=== PATIENT | male | born 1990 | race Two or more races ===

== ENCOUNTER 2023-06-21 07:38 | Day surgery (SDC) | payer OTHER ==
[~2023-06-21] VITALS: Ht 175.3 cm; Wt 162.6 kg
[~2023-06-21 07:38] MED LIST: TRUVADA 200 MG1 EACH PO
[2023-06-21 08:01] VITALS: BP 142/74
--- NOTE | 2023-06-21 09:08 | NUR ---
06/21/23 0908 Alee De La Vega 0905-PT TO PACU IN LL POSITION. EYES CLOSED. DOES NOT RESPODN TO VERBAL TO TACTILE STIMULI. MOVES EXTREMITIES BUT DOES NOT FOLLOW COMMANDS. BREATHING EASY AND UNLABORED. SPO2 >95% ON 3 L O2 VIA NC.
--- NOTE | 2023-06-21 09:41 | OR ---
[facility] [address] [place], [place] [address] Signed DATE OF OPERATION: 06/21/2023 SURGEON: Guy Shaffer MD PREOPERATIVE DIAGNOSES: 1. Internal and external hemorrhoid at the 5 o'clock position. 2. Rectal bleeding with mucousy discharge. 3. Change in bowel habits with hard stool, now oily and mucousy. POSTOPERATIVE DIAGNOSIS: Pedunculated moderate-sized internal hemorrhoid. PROCEDURE: Colonoscopy with cold biopsies of the left colon and distal rectum. ESTIMATED BLOOD LOSS: None. INDICATIONS: Edwin is a 33-year-old obese gentleman, asked to see me for his hemorrhoids. I first met Edwin in May 2020 at the age of 30. We know he has an internal and external hemorrhoid at the 5 o'clock position. He wanted to proceed with conservative treatment at that time. He said the hemorrhoids have gotten larger and they have been bleeding every day. He said there is lots of mucus. 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 He also has homosexual behavior but said he has had no relationships in over a year. He said there have been no foreign bodies in the anal canal in over a year. He describes a change in bowel habits with normally hard stool but now oily and mucousy. He had been to his primary care provider. He was asked to see me with respect to the above. He has no family history of colon cancer, colon polyps or inflammatory bowel disease. In the office, I explained to Edwin and his that we perform a colonoscopy before we would proceed with any hemorrhoid surgery. I gave him a pamphlet on colonoscopy. We had reviewed the nature of the test. He understands there is risk including, but not limited to gas bloating, crampy abdominal pain, bleeding, perforation requiring surgery, and missed diagnosis. We also reviewed the written instructions for bowel prep line by line. He had expressed understanding and wished to proceed. He understands an adult person has to take him home afterwards. PROCEDURE NOTE: Edwin was taken into our endoscopy suite and placed in the left lateral decubitus position. He was given 8 mg of Versed and 150 mcg of fentanyl to cover the case. A Electronically Signed By: GUY SHAFFER MD 06/21/23 0941 PATIENT NAME: KATHI SYED OPERATIVE REPORT DATE OF : [birth year] REPORT #: [id number] PHYSICIAN: GUY SHAFFER MD PCP: NO PRIMARY CARE PHYSICIAN REPORT IS CONFIDENTIAL AND NOT TO BE RELEASED WITHOUT AUTHORIZATION [facility] [address], [place] [address] Signed digital rectal exam was performed and this was unremarkable. He has no obvious external hemorrhoids. He had good sphincter tone. He is a very large man and I could not reach the prostate. I could just barely get my finger up over the levator muscles. After this, the adult colonoscope was introduced and advanced under direct visualization of the camera up into the cecum itself. His prep was quite good. We could easily see the appendiceal orifice and the ileocecal valve. The scope was then slowly withdrawn. We took pictures throughout for photodocumentation. There were no inflammatory changes throughout the entire colon. We took a couple of biopsies out of his left colon because of the change in bowel habits. The rectum was unremarkable except near the distal half it was a bit speckled in the mucosa. We took a couple of biopsies for pathologic review. We finally found his pedunculated and hemorrhagic internal hemorrhoid. It is just above the dentate line. It is a little too large to capture it with a wire here in the endoscopy suite. We will have to do this in the operating room. After this, the gas was suctioned out and the colonoscope removed. Edwin tolerated the procedure quite well. RECOMMENDATIONS: I will see Edwin back in my office in 7 to 14 days to review his results. Guy Shaffer MD ALB/MODL /[id number] cc: MD Delmis Garcia FNP Copies: GUY SHAFFER MD, SHARA FNP ~ Electronically Signed By: GUY SHAFFER MD 06/21/23 0941 PATIENT NAME: KATHI SYED OPERATIVE REPORT DATE OF : [birth year] REPORT #: [id number] PHYSICIAN: GUY SHAFFER MD PCP: NO PRIMARY CARE PHYSICIAN REPORT IS CONFIDENTIAL AND NOT TO BE RELEASED WITHOUT AUTHORIZATION
[2023-06-21 09:47] VITALS: BP 154/99
--- NOTE | 2023-06-25 12:13 | PATH ---
[facility] [address] [facility] [place], [place] [address] Signed SPECIMEN(S): A COLON BIOPSY SPECIMEN(S): B RECTUM SPECIMEN SOURCE: A. COLON BIOPSY B. RECTUM CLINICAL HISTORY: Pre: History of bowel changes. Post: Internal hemorrhoids. FINAL PATHOLOGIC DIAGNOSIS: A. Colon biopsy: - Benign colonic mucosa with slight hyperplastic features (three fragments). - Negative for dysplasia or pathologic inflammation. B. Rectum, biopsy: - Benign colonic mucosa with slight hyperplastic features (three fragments). - Negative for dysplasia or pathologic inflammation. VR:[facility] [place] MICROSCOPIC EXAMINATION: Histologic sections of all submitted blocks are examined by light microscopy. These findings, together with the gross examination, support the pathologic diagnosis. GROSS DESCRIPTION: A. The specimen, labeled and designated "Syed, F, colon (NOS) biopsy," is received in formalin and consists of 2 pike soft tissue fragments measuring 0.3 x 0.5 cm in greatest dimension, specimens are submitted entirely in (A1). B. The specimen, labeled and designated "Syed, F, colon, rectum biopsy," is received in formalin and consists of 2 pike soft tissue fragments measuring 0.3 x 0.5 cm in greatest dimension, specimens are submitted entirely in (B1). [facility] (under the direct supervision of a pathologist) The Gross Description was prepared using a voice recognition system. The report was reviewed for accuracy; however, sound-alike word errors, addition and/or deletions may occur. If there is any question about this report, please contact Client Services. PERFORMING LABORATORY: Technical component was performed by [employer] Justina Carter, PATIENT NAME: KATHI SYED PATHOLOGY DATE OF : [birth year] REPORT #: [id number] PHYSICIAN: AYESHA PATHOLOGY PCP: NO PRIMARY CARE PHYSICIAN REPORT IS CONFIDENTIAL AND NOT TO BE RELEASED WITHOUT AUTHORIZATION [facility] [address] [facility] [place] [address] [place] [address] (CLIA# [id number]). Professional interpretation was performed by [facility] [address] [address] (CLIA#: [id number]). Diagnostician: Scott Meyer MD Pathologist Electronically Signed 06/25/2023 Copies: ~ PATIENT NAME: KATHI SYED PATHOLOGY DATE OF : [birth year] REPORT #: [id number] PHYSICIAN: AYESHA QUINN PCP: NO PRIMARY CARE PHYSICIAN REPORT IS CONFIDENTIAL AND NOT TO BE RELEASED WITHOUT AUTHORIZATION
== END 2023-06-21 09:50 | disposition home or self-care (01) ==
LOC: DS 07:38 → OPS 07:38 → DS 10:15 → OPS 10:15
PROVIDERS: ATTEND Colon & Rectal Surgery
PROC: 0DBP8ZX Excision of Rectum, Via Natural or Artificial Opening Endoscopic, Diagnostic (ICD-10-PCS; 2023-06-21)
PROC: 0DBM8ZX Excision of Descending Colon, Via Natural or Artificial Opening Endoscopic, Diagnostic (ICD-10-PCS; principal; 2023-06-21 08:30)
DX: K64.8 Other hemorrhoids (principal); K64.4 Residual hemorrhoidal skin tags; E66.9 Obesity, unspecified; F41.9 Anxiety disorder, unspecified; Z68.43 Body mass index [BMI] 50.0-59.9, adult
CPT/HCPCS: 99153; G0500; J2250; J3010; J7121

== ENCOUNTER 2023-08-29 09:58 | Day surgery (SDC) | payer OTHER ==
[~2023-08-29] VITALS: Ht 175.3 cm; Wt 163.2 kg
[2023-08-29 10:17] VITALS: BP 151/83
--- NOTE | 2023-08-29 14:09 | NUR ---
08/29/23 1409 [place] 1342 PT TO PACU ON STRETCHER. NON AROUSABLE. LE 1407 PT AWAKE AND TAKING SIPS OF WATER. DENIES PAIN.
[2023-08-29 14:30] VITALS: BP 136/81
--- NOTE | 2023-08-29 14:40 | NUR ---
1435: PATIENT BACK IN DAY SURGERY ROOM FROM PACU. DENIES PAIN. PERIPAD IN PLACE IS CLEAN, DRY AND INTACT. TOLERATING WATER. IV SALINE LOCKED AFTER ARRIVING IN DAY SURGERY. VS CHECKED. PATIENT GIVEN CHOCOLATE PUDDING TO EAT. SCDs ON. MOTHER AT BEDSIDE. CALL LIGHT WITHIN REACH.
[2023-08-29] MEDS ORDERED: HYDROCODON-ACE1 EAC8 PO (14:51)
[2023-08-29 15:20] VITALS: BP 142/78
--- NOTE | 2023-08-29 16:38 | NUR ---
1520: PATIENT TOLERATED PUDDING. DENIES PAIN AT SURGICAL SITE. VS CHECKED. IV DC'D WNL. TIP INTACT. DRESSING APPLIED. DISCHARGE INSTRUCTIONS GIVEN TO PATIENT AND MOTHER. 1530: PATIENT ASSISTED OOB AND TO WALK AROUND ROOM. PATIENT GETTING DRESSED. 1538: STAND BY ASSIST WHILE WALKING TO BATHROOM. VOID WITHOUT DIFFICULTY. GAIT STEADY. PATIENT DISCHARGED TO HOME VIA WHEELCHAIR WITH MOTHER.
--- NOTE | 2023-08-30 07:21 | OR ---
[facility] [address] [place], [place] [address] Signed DATE OF OPERATION: 08/29/2023 SURGEON: Guy Bacon MD PREOPERATIVE DIAGNOSIS: Bleeding internal and external hemorrhoid at the 5 o'clock position. POSTOPERATIVE DIAGNOSIS: Bleeding internal and external hemorrhoid at the 5 o'clock position. PROCEDURE: External hemorrhoidectomy. ESTIMATED BLOOD LOSS: Minimal. INDICATIONS: Kathi is a 33-year-old obese gentleman, who has been struggling with an internal and external hemorrhoid at the 5 o'clock position. It has been bleeding for several years. It has become progressively worse. We had him for a colonoscopy previously. That went well. We could see this hemorrhoid at the 5 o'clock position. Kathi came back to the office and said he would like to have it removed. I had given him a brochure on hemorrhoids. We went through ir page by page. I circled the sections relevant to him. He understands that traditional hemorrhoid surgery can be very painful. Of course there is risk including, but not limited to bleeding, infection, scarring, change in contour of the skin as well as other unforeseen comorbidities including ongoing hemorrhoid issues. He understands this will be a day surgery. He had expressed understanding wished to proceed. DESCRIPTION OF PROCEDURE: Kathi went through our standard bowel prep. He did well in that regard. He came today with his mom. Two of our anesthesia providers attempted to place a saddle block. Unfortunately, with a body mass index of 53, that was not successful. Consequently, we took Kathi in the room and we placed him under general endotracheal tube anesthesia. With the help of multiple nurses, we rotated him into the supine straight we rotated him into the prone charlene-knife position with appropriate padding and monitoring. He was given preoperative antibiotics along with subcutaneous heparin. SCDs were utilized. He was prepped and draped in the usual sterile fashion. After this, a digital rectal exam was performed and I can feel this pedunculated hemorrhoid tissue. We then used a half-simon protractor and we could easily see this pedunculated hemorrhoid at the 5 Electronically Signed By: GUY BACON MD 08/30/23 0721 PATIENT NAME: KATHI SYED OPERATIVE REPORT DATE OF : [birth year] REPORT #: [id number] PHYSICIAN: GUY BACON MD PCP: EVERT LAM REPORT IS CONFIDENTIAL AND NOT TO BE RELEASED WITHOUT AUTHORIZATION [facility] [address] [place], [place] [address] Signed o'clock position. A very interesting in that regard. We used a standard 2-0 chromic suture just above this area and placed our 1st stitch. We then used cautery to excise this pedunculated very hemorrhagic almost granulomatous looking tissue. We did not see any obvious areas that would suggest HPV infection. We then oversewed that hemorrhoidectomy site with running locked 2-0 chromic suture. Local anesthetic was then injected underneath the area. Kathi was then rotated into the supine position onto his hospital bed. He was weaned from his anesthesia, extubated in the OR, and taken to recovery room in stable condition. Guy Bacon MD ALB/MODL /[id number] cc: DEMI Mays MD Copies: EVERT LAM ANDREW L MD ~ Electronically Signed By: GUY BACON MD 08/30/23 0721 PATIENT NAME: KATHI SYED OPERATIVE REPORT DATE OF : [birth year] REPORT #: [id number] PHYSICIAN: GUY BACON MD PCP: EVERT LAM REPORT IS CONFIDENTIAL AND NOT TO BE RELEASED WITHOUT AUTHORIZATION
== END 2023-08-29 15:30 | disposition home or self-care (01) ==
LOC: DS 09:58
PROVIDERS: ATTEND Colon & Rectal Surgery
PROC: 065Y0ZC Destruction of Hemorrhoidal Plexus, Open Approach (ICD-10-PCS; principal; 2023-08-29 11:50)
DX: K64.8 Other hemorrhoids (principal); K64.4 Residual hemorrhoidal skin tags; E66.9 Obesity, unspecified; Z68.43 Body mass index [BMI] 50.0-59.9, adult
CPT/HCPCS: 00902; J0131; J0330; J0690; J1100; J1644; J2001; J2250; J2405; J2704; J3010; J3475; J3490; J7121

== ENCOUNTER 2024-07-24 08:30 | Day surgery (SDC) | payer OTHER ==
[2024-07-21 13:33] VITALS: BP 169/109
[~2024-07-24] VITALS: Ht 172.7 cm; Wt 145.4 kg
[~2024-07-24 08:30] MED LIST changes: +HYDROCODON-ACE1 EAC8 PO; +IBLOOD GLUCOSE TEST STRIP 1 EA TEST VI PRN; +LACTATED RINGER'S 1,000 ML IV SCH; +LIDOCAINE HCL 1% 5 ML SDV INJ ONE; +MIDAZOLAM HCL 5 MG/5 ML VIAL IV PRN; +fentaNYL citrate 100 MCG/2 ML VIAL IV PRN
[2024-07-24] MEDS ORDERED: LIDOCAINE HCL 2% 5 ML SDV ONE (09:19)
[2024-07-24] MEDS ORDERED: propofoL 200 MG/20 ML VIAL ONE ×2 (09:19→09:33)
--- NOTE | 2024-07-24 09:55 | NUR ---
07/24/24 0910 EDUARD XIAO 0953 PT ARRIVED TO PACU VIA STREACHER. PT AWAKE AND ON RA. BREATHING EQUAL AND UNLABORED. REPORT TAKEN FROM FABIAN IGLESIAS. PT REPORTING NO PAIN OR NAUSEA AT THIS. PT SITTING UPRIGHT IN BED. 0954 PT SITTING UPRIGHT IN BED SIPPING WATER AT THIS TIME. PT STATES HE IS COMFORTABLE.
[2024-07-24 10:08] VITALS: BP 124/85
--- NOTE | 2024-07-29 07:11 | OR ---
[facility] [address] [place], [place] [address] Signed DATE OF OPERATION: 07/24/2024 SURGEON: Guy Bacon MD PREOPERATIVE DIAGNOSES: 1. Epigastric and left upper quadrant abdominal pain. 2. Cholelithiasis. POSTOPERATIVE DIAGNOSES: 1. Mild distal esophagitis at GE junction. 2. GE junction at 35 cm. PROCEDURES: Esophagogastroduodenoscopy with CLOtest and biopsies of duodenum, pyloric bulb, antrum and GE junction. ESTIMATED BLOOD LOSS: None. INDICATIONS: Kathi is a 34-year-old gentleman with a body mass index of 58. He has been having trouble with intermittent epigastric and left upper quadrant abdominal pain. He is known to have cholelithiasis. He actually went down to [facility] and is working with hepatobiliary surgeon with respect to the above. They are considering a robotic assisted laparoscopic cholecystectomy. Hepatobiliary surgeon would like him to have an upper endoscopy. I was asked to help in that regard here as a local general surgeon. I had met with Kathi in the office. I gave him a pamphlet on upper endoscopy. We had reviewed the nature of the test. There is risk including, but not limited to gas bloating, crampy abdominal pain, bleeding, perforation requiring surgery, and missed diagnosis. We also reviewed the need for monitored anesthesia care given his body mass index and his very full face, heavy neck, chest and abdomen. He had expressed understanding and wished to proceed. DESCRIPTION OF PROCEDURE: Edwin was taken into our endoscopy suite and placed in the supine semi-recumbent position. He was placed under monitored anesthesia care propofol infusion per our nurse director of development and marketing. We reviewed his preop blood work and we can see that his total bilirubin 0.2, AST 33, ALT 89, which is slightly high and his alkaline phosphatase was 105. Albumin was good at 3.4. White count was normal. A bite block was utilized for the case. The posterior oropharynx was anesthetized with lidocaine spray. The adult Electronically Signed By: GUY BACON MD 07/29/24 0711 PATIENT NAME: KATHI SYED OPERATIVE REPORT DATE OF : [birth year] REPORT #: [id number] PHYSICIAN: GUY BACON MD PCP: EVERT LAM REPORT IS CONFIDENTIAL AND NOT TO BE RELEASED WITHOUT AUTHORIZATION [facility] [address] [place], [place] [address] Signed gastroscope was introduced and advanced under direct visualization of camera without difficulty. His duodenal and pyloric channel looked unremarkable. Because of his symptoms we went and took biopsies of the pyloric channel as well as the duodenum. We could just see a little bit of his ampulla of Vater and it seemed to be fine. We went ahead and took biopsies of the antrum for pathologic review as well as CLOtest. We saw no ulcers in the pyloric bulb or the stomach. Really no inflammation in the stomach. The incisura body and fundus of the stomach were unremarkable. Upon retroflexion of scope, just a little bit of stomach is getting pulled in on the lesser curve side. It is not really a hiatal hernia per se. The scope was withdrawn up through the area of the GE junction, which was compliant without stricture. There was no gastric or esophageal varices. He did have some irritation right around the Z-line at 35 cm. He had three small shallow ulcerations about 3 to 4 mm in length. There was no Burden's mucosa. The distal, middle and upper esophagus were unremarkable. We have taken a biopsy at the GE junction for pathologic review. After this, the gas was suctioned out and the gastroscope removed. Kathi tolerated the procedure quite well. RECOMMENDATIONS: I will see Kathi back in my office in 7 to 14 days to review his results. He might try proton pump inhibitors to see if this helps his symptoms. uGy Bacon MD ALB/MODL /[id number] cc: DEMI Mays MD [facility] Electron[facility] Signed By: GUY BACON MD 07/29/24 0711 PATIENT NAME: KATHI SYED OPERATIVE REPORT DATE OF : [birth year] REPORT #: [id number] PHYSICIAN: GUY BACON MD PCP: EVERT LAM REPORT IS CONFIDENTIAL AND NOT TO BE RELEASED WITHOUT AUTHORIZATION [facility] [address] [place] [address] Signed Copies: GUY BACON MD ~ Electronically Signed By: GUY BACON MD 07/29/24 0711 PATIENT NAME: KATHI SYED OPERATIVE REPORT DATE OF : [birth year] REPORT #: [id number] PHYSICIAN: GUY BACON MD PCP: EVERT LAM REPORT IS CONFIDENTIAL AND NOT TO BE RELEASED WITHOUT AUTHORIZATION
--- NOTE | 2024-07-29 10:44 | PATH ---
[facility] [address] [place], [place] [address] Signed SPECIMEN(S): A DUODENAL BIOPSY SPECIMEN(S): B ESOPHAGEAL BIOPSY SPECIMEN(S): C ANTRUM BIOPSY SPECIMEN(S): D GE JUNCTION BIOPSY SPECIMEN SOURCE: A. DUODENAL BIOPSY B. ESOPHAGEAL BIOPSY C. ANTRUM BIOPSY D. GE JUNCTION BIOPSY CLINICAL HISTORY: Evaluation for gastritis, distal esophagitis. FINAL PATHOLOGIC DIAGNOSIS: A. Duodenal biopsy: - Benign duodenal mucosa, negative for specific diagnostic abnormality. B. Esophageal biopsy: - Intestinal (duodenal) mucosa, negative for dysplasia. C. Antrum biopsy: - Benign gastric mucosa with focal slight chronic inflammation. - Negative for evidence of Helicobacter organisms on routine HE stained sections. D. GE junction biopsy: - Esophageal and gastric mucosa with specialized intestinal (goblet cell) metaplasia, indefinite for mild dysplasia. COMMENT: As part of [facility] Quality Improvement Program, this case was reviewed by another member of our pathology staff. DIANA:aurelia MICROSCOPIC EXAMINATION: Histologic sections of all submitted blocks are examined by light microscopy. These findings, together with the gross examination, support the pathologic diagnosis. GROSS DESCRIPTION: A. The specimen, labeled and designated "José duodenal biopsy," is received in formalin and consists of one pike soft tissue fragment, 0.3 cm. Entirely submitted in (A1). PATIENT NAME: KATHI SYED PATHOLOGY DATE OF : [birth year] REPORT #: [id number] PHYSICIAN: [facility] PCP: EVERT LAM REPORT IS CONFIDENTIAL AND NOT TO BE RELEASED WITHOUT AUTHORIZATION [facility] [address] [place], [place] [address] Signed B. The specimen, labeled and designated "Syed, esophageal biopsy," is received in formalin and consists of one pike soft tissue fragment, 0.4 cm. Entirely submitted in (B1). C. The specimen, labeled and designated "Syed, antrum biopsy," is received in formalin and consists of one pike soft tissue fragment, 0.2 cm. Entirely submitted in (C1). D. The specimen, labeled and designated "Syed, GE junction biopsy," is received in formalin and consists of two pike soft tissue fragments, ranging from 0.2-0.3 cm. Entirely submitted in (D1). [facility] (under the direct supervision of a pathologist) The Gross Description was prepared using a voice recognition system. The report was reviewed for accuracy; however, sound-alike word errors, addition and/or deletions may occur. If there is any question about this report, please contact Client Services. PERFORMING LABORATORY: Technical component was performed by [facility], [address] [place] [id number] (CLIA# [id number]). Professional interpretation was performed by [facility], [address] [place] [phone] (CLIA#: [id number]). Diagnostician: Scott Meyer MD Pathologist Electronically Signed 07/29/2024 Copies: ~ PATIENT NAME: KATHI SYED PATHOLOGY DATE OF : [birth year] REPORT #: [id number] PHYSICIAN: AYESHA PATHOLOGY PCP: EVERT LAM REPORT IS CONFIDENTIAL AND NOT TO BE RELEASED WITHOUT AUTHORIZATION
== END 2024-07-24 10:20 | disposition home or self-care (01) ==
LOC: DS 08:30
PROVIDERS: ATTEND Colon & Rectal Surgery
PROC: 0DB78ZX Excision of Stomach, Pylorus, Via Natural or Artificial Opening Endoscopic, Diagnostic (ICD-10-PCS; 2024-07-24)
PROC: 0DB68ZX Excision of Stomach, Via Natural or Artificial Opening Endoscopic, Diagnostic (ICD-10-PCS; 2024-07-24)
PROC: 0DB48ZX Excision of Esophagogastric Junction, Via Natural or Artificial Opening Endoscopic, Diagnostic (ICD-10-PCS; 2024-07-24)
PROC: 0DB98ZX Excision of Duodenum, Via Natural or Artificial Opening Endoscopic, Diagnostic (ICD-10-PCS; principal; 2024-07-24 09:45)
DX: K20.90 Esophagitis, unspecified without bleeding (principal); K29.40 Chronic atrophic gastritis without bleeding; E66.9 Obesity, unspecified; K80.10 Calculus of gallbladder with chronic cholecystitis without obstruction; Z88.8 Allergy status to other drugs, medicaments and biological substances; Z68.43 Body mass index [BMI] 50.0-59.9, adult
CPT/HCPCS: 00813; 36415; 87077; J2704; J7121